=== PATIENT | male | born 1955 | race Native Hawaiian/Other Pacific Islander ===

== ENCOUNTER 2022-09-04 16:21 | Emergency (ER) | payer OTHER ==
[~2022-09-04] VITALS: Ht 167.6 cm; Wt 61.3 kg
[2022-09-04 16:45] LABS: PLATELET COUNT 280 K/uL (142-355)
[2022-09-04 16:53] LABS: POTASSIUM 3.8 mmol/L (3.6-5.2)
[2022-09-04] MEDS ORDERED: BREO ELLIPTA 101 INH INH (18:31)
[2022-09-04] MEDS ORDERED: IPRAAER INH (18:31)
[2022-09-04] MEDS ORDERED: DIVA250T PO (18:32)
[2022-09-04] MEDS ORDERED: MIRTAZAPINE7.5 MG PO (18:33)
[2022-09-04] MEDS ORDERED: GABA300C2 PO (18:33)
[2022-09-04] MEDS ORDERED: NITR0.4S2 SL (18:35)
[2022-09-04] MEDS ORDERED: PANTOPRAZOLE 40MG TA PO (18:36)
[2022-09-04] MEDS ORDERED: PROVERA5 MG PO (18:37)
[2022-09-04] MEDS ORDERED: SIMV20TA2 PO (18:38)
[2022-09-04] MEDS ORDERED: TRAMADOL HYDROC50 MG PO (18:38)
[2022-09-04] MEDS ORDERED: TRAZ100T PO (18:39)
== END 2022-09-04 17:28 | disposition still patient (30) ==
LOC: ED 16:21
PROVIDERS: Family Medicine
DX: F20.9 Schizophrenia, unspecified (principal); F29 Unspecified psychosis not due to a substance or known physiological condition; Z02.79 Encounter for issue of other medical certificate
CPT/HCPCS: 80053; 81002; 85027; 87635; 93005; 99283; U0003